=== PATIENT | female | born 2000 ===

== ENCOUNTER 2022-08-05 13:26 | Emergency (ER) | payer SELFPAY ==
[2022-08-05 18:10] VITALS: BP 131/70; PULSE 64; RESP 18; TEMP 36.6; O2SAT 100; BMI 44.6
--- NOTE | 2022-08-05 19:54 | ED_ITS ---
HPI - Skin/Abscess/Foreign Bdy General Chief complaint: Skin/Abscess/Foreign Body Stated complaint: cyst Time Seen by Provider: 08/05/22 19:42 Source: patient Mode of arrival: ambulatory Limitations: no limitations History of Present Illness HPI narrative: 22-year-old female who presents emergency department for evaluation of pilonidal abscess. The patient states that on Thursday (5 days prior to evaluation) she d eveloped a fever. She states her temperature was as high as 102.5 degrees F. She states she was fatigued, she lost her appetite and also had a headache. She states she noted pain in her lower buttocks area. She states that the area became swollen and did drain pus. She states this the 1st time she has had swelling or pain in this area. She did see health services at [facility] and there was a concerned that she had an abscess that required drainage, therefore she was sent to the emergency department for evaluation. The patient has received 2 Moderna COVID vaccine shots and a booster shot. She states she tested herself twice at home with COVID-19 test and both were negative. MD complaint: abscess/boil (Buttocks area) Onset (ago): day(s) (5) Location: buttocks (Pilonidal area) Severity: moderate Severity scale (1-10): 6 Quality: aching Pain Consistency: constant Relieving factors: none Exacerbating factors: none Associated symptoms: fever, chills, malaise and other (Anorexia) Treatments prior to arrival: none Related Data Previous Rx's Medication Instructions Recorded cephalexin 500 mg capsule 500 mg PO TID 7 days #21 caps 08/05/22 Allergies Allergy/AdvReac Type Severity Reaction Status Date / Time No Known Allergies Allergy Verified 08/05/22 19:53 Review of Systems Review of Systems: Yes all other systems are reviewed and are negative [facility] Past Medical History [facility] Narrative: Past medical history: None. Past surgical history: Left neck surgery when she was 3 years old for a mass. Social history: She denies tobacco use. She denies alcohol use. She denies drug use. She is a college student at [employer]. Physical Exam Vital Signs: Vital Signs: Last Vital Signs Temp 98 F 08/05/22 18:10 Pulse 64 08/05/22 18:10 Resp 18 08/05/22 18:10 BP 131/70 08/05/22 18:10 Pulse Ox 100 08/05/22 18:10 O2 Del Method 08/05/22 18:10 BMI result Body Mass Index 44.6 Const: Other: Very pleasant and cooperative female patient, awake, alert, does not appear to be in distress answers all questions appropriately HEENT: Head: Yes normal to inspection, Yes normocephalic and Yes atraumatic Ears: external ears normal General nose exam: Normal external nose present Face and sinus: Yes normal facial exam Mouth: Normal oral and palatal mucosa present Throat: Yes posterior oropharynx normal Eyes: General: appearance normal, both eyes and all related structures Pupils: Equal, round and reactive pupils present Neck: Neck: Yes normal visual inspection, Yes no lymphadenopathy, Yes trachea midline and Yes supple Chest: Chest palpation & inspection: normal inspection of the chest and normal palpation of entire chest wall Resp: Effort & Inspection: normal respiratory effort and able to speak in complete sentences Auscultation: clear to auscultation bilaterally Cardio: Rate: regular rate Rhythm: regular rhythm Heart sounds: S1 normal heart sound present, S2 normal heart sound present and no murmurs GI: Inspection: Yes normal to inspection Palpation (GI): Soft to palpation, nontender and no guarding Auscultation: normal bowel sounds : General: Yes no CVA tenderness Back/Spine/Pelvis: Back: no CVA tenderness Skin: Other: The patient's pilonidal area is erythematous, there is sloughing the skin in a circular pattern with central area that has a small open wound that is not currently draining purulent material but there is some flocculence in the area. There are 2 small erythematous lesions to the right and 2 small erythematous lesions the left of the open wound with indurated skin. There is no increased warmth. The area is minimally tender to palpation Neuro: Cranial nerves: Yes CN's II-XII intact bilaterally and Yes Equal, round and reactive pupils present Cognition (Neuro): normal cognition Motor exam (neuro): 5/5 motor strength present throughout (She is able to stand moves all extremities symmetrically) Extrem: General: Yes normal to inspection Psych: Appearance: grossly normal Speech and movement: Normal speech and movement present Affect: normal affect Attitude: cooperative Course Course Course Narrative: 22-year-old female who presents emergency department for evaluation of 5 days of pain in her lower buttocks area with fever, chills, fatigue and loss of appet ite. The patient noted purulent drainage from this area with some improvement of her pain. She was seen today at her [facility] services and referred to the emergency department for evaluation of possible abscess that needed to be incised and drained. Patient's vital signs were normal with a temperature of 98 degrees F.. Her physical examination did reveal a pilonidal cyst/abscess which appears to have drained however there was still an area of flocculence. I did discuss the incision and drainage procedure in the patient did give me verbal consent. I initially explored the area with an 18 gauge needle on a 20 cc syringe and was unable to get any purulent material with explanation. I then made an incision with a 11. Blade scalpel and clear serous fluid drained from the incision site with no purulent material. Patient's findings are consistent with a pilonidal abscess which spontaneously drained. The cavity was packed with 1/4-inch iodoform gauze. Patient was started on Keflex and given her 1st dose here in the emergency department she is to take 500 mg 4 times a day for 7 days. She was advised to take Tylenol and ibuprofen. She will need to be re- evaluated by health services and 3-4 days to have the packing removed. Patient was discharged home with verbal and printed instructions. Procedures Abscess I/D Site: other (Pilonidal abscess) Local Anesthetic: lidocaine 2% and with epi Amount of anesthesia used (mL): 15 Technique: needle aspiration (Multiple attempts were made with no abscess pocket located) and incised with blade (# 11 Blade) Amount of fluid expressed (mL): 10 Sent for culture/gram staining?: No Irrigation: No Packing used?: iodoform (1/4 inch) Complications: other (None) Discharge Plan Discharge Clinical Impression: Cyst, pilonidal, with abscess, Encounter for incision and drainage procedure Patient Disposition: Home, Self-Care Instructions: Pilonidal Cyst Excision (DC) Additional Instructions: Your findings are consistent with a pilonidal abscess which drained. When I explored this wound with an 18 gauge needle I was unable to locate a pocket of purulence material (pus). I then made an incision with a number 11 scalpel and clear serous fluid drained from the wound and there was no purulent material that I could locate. The wound was packed with gauze packing. This gauze packing needs to be removed in 3-4 days by your [facility] services. If the packing falls out before 3-4 days it does not need to be replaced. I am treating you with an antibiotic called Keflex (cephalexin) 500 mg you received a dose prior to leaving the emergency department Change the gauze and the OB pad daily or more frequently if you bleed through the pad. Take Keflex (cephalexin) 500 mg pills, 1 pill 3 times a day for 7 days. Take ibuprofen 200 mg pills, 3 pills every 6 hours as needed for pain. Take Tylenol (acetaminophen) 500 mg pills, 2 pills every 4 to 6 hours as needed for pain. Follow-up with your doctor in 2 days. Please return to the emergency department if your symptoms get worse or if you develop any symptoms that are concerning to you. Prescriptions: New cephalexin 500 mg capsule 500 mg PO TID 7 Days Qty: 21 0RF Interventions: LWBS Worksheet Last Done: 08/05/22 17:19
[2022-08-05] MEDS: Lidocaine HCl 2% PF/Epi 1:200 20 ML VIAL INFILTRATI (20:01)
[2022-08-05 20:19] LABS: COVID-19 Test Negative (Negative); IDNOW Serial# 16C4AD1C
--- NOTE | 2022-08-05 20:57 | PC.NURSE ---
PT A&Ox3, vss, provider lanced/drained abscess with tech in the room, pt tolerated well, [facility] Police contacted to collect pt, pt discharged to waiting room.
== END 2022-08-05 20:59 | disposition home or self-care (01) ==
PROVIDERS: Emergency Provider Emergency Medicine Emergency Medical Services
DX: L05.01 Pilonidal cyst with abscess (principal); Z20.822 Contact with and (suspected) exposure to COVID-19
CPT/HCPCS: 10080; 87635; 99282; 99284